=== PATIENT | male | born 1990 | race Caucasian/White ===

== ENCOUNTER 2016-12-12 08:46 | Emergency (ER) | payer SELFPAY ==
[~2016-12-12] VITALS: Ht 180.3 cm; Wt 73.5 kg
[2016-12-12 09:42] LABS: Basophils # (auto) 0.1 uL; Basophils % (auto) 0.6 % (0.0-2.0); CONDITION Y; Eosinophils # (auto) 0 uL; Eosinophils % (auto) 0.2 % (0.0-7.0); Hematocrit 49.2 % (41.0-53.0); Lymphocytes # (auto) 2.4 uL; Lymphocytes % (auto) 30.6 % (10.0-50.0); Mean Corpuscular Hgb Conc. 34.5 g/dL (32.0-36.0); Mean Corpuscular Volume 87.1 fL (80.0-100.0); Mean Platelet Volume 7.9 fL (7.4-10.4); Monocytes # (auto) 0.5 uL; Neutrophils # (auto) 4.8 uL; Neutrophils % (auto) 61.6 % (37.0-80.0); Platelet Count (auto) 276 10^3/uL (140-450); Red Cell Distribution Width 13.1 % (11.6-16.0); White Blood Cell 7.8 10^3/uL (4.4-10.8)
[2016-12-12 10:03] LABS: Albumin 4.1 g/dL (3.4-5.0); Bilirubin, Total 0.7 mg/dL (0.2-1.0); Calcium 8.7 mg/dL (8.5-10.1); Potassium 3.8 mmol/L (3.5-5.1); Total Protein 7.4 g/dL (6.4-8.2)
[2016-12-12] MEDS ORDERED: SODIUM CHLORIDE 0.9% 1,000 ML IV ONE (10:24)
[2016-12-12] MEDS ORDERED: LORazepam 2MG/ML-1ML VIAL IV ONE (10:30)
[2016-12-12 17:25] VITALS: BP 90/43
== END 2016-12-12 18:21 | disposition home or self-care (01) ==
LOC: ER 08:46
DX: G40.909 Epilepsy, unspecified, not intractable, without status epilepticus (principal); Z91.14 Patient's other noncompliance with medication regimen; F17.210 Nicotine dependence, cigarettes, uncomplicated; F12.10 Cannabis abuse, uncomplicated
CPT/HCPCS: 36415; 80053; 82962; 83735; 85025; 96361; 96374; 99284; J2060; J7030

== ENCOUNTER 2019-05-14 02:40 | Emergency (ER) | payer MEDICAID ==
[~2019-05-14] VITALS: Ht 180.3 cm; Wt 86.2 kg
[2019-05-14] MEDS ORDERED: LORazepam 2MG/ML-1ML VIAL ONE (02:49)
[2019-05-14] MEDS ORDERED: LORazepam 2MG/ML-1ML VIAL IV ONE (03:00)
[2019-05-14] MEDS ORDERED: LORazepam 2MG/ML-1ML VIAL IV PRN (03:00)
[2019-05-14 03:37] LABS: Urine Bacteria FEW /hpf (None Seen); Urine Blood 1+ /uL (Negative); Urine Hyaline Cast FEW /lpf (0 - 2); Urine Specific Gravity 1.006 (1.001-1.035); Urine Sperm PRESENT /hpf (None Seen); Urine WBC 1 /hpf (0 - 3)
[2019-05-14 03:43] LABS: Amphetamine Screen, Urine NEGATIVE (NEGATIVE); Barbiturate Scree,Urine NEGATIVE (NEGATIVE); Benzodiazephine Screen, Urine NEGATIVE (NEGATIVE); Cannabinoid Screen, Urine NEGATIVE (NEGATIVE); Cocaine Screen, Urine POSITIVE (NEGATIVE); Phencyclidine Screen, Urine NEGATIVE (NEGATIVE)
[2019-05-14 03:51] LABS: Opiate Scree,Urine NEGATIVE (NEGATIVE)
[2019-05-14 04:15] LABS: Albumin 3.5 g/dL (3.4-5.0); BUN/Creatinine Ratio 11.7; Calcium 7.9 mg/dL (8.5-10.1); Potassium 3.8 mmol/L (3.5-5.1)
[2019-05-14 04:16] LABS: Basophils # (auto) 0.1 uL; Basophils % (auto) 0.7 % (0.0-2.0); Eosinophils # (auto) 0.2 uL; Eosinophils % (auto) 1.1 % (0.0-7.0); Hematocrit 50.4 % (41.0-53.0); Hemoglobin 17.8 g/dL (13.5-17.5); Lymphocytes # (auto) 6.6 uL; Lymphocytes % (auto) 33.2 % (10.0-50.0); Mean Corpuscular Hemoglobin 32.1 pg (28.0-32.0); Mean Corpuscular Hgb Conc. 35.2 g/dL (32.0-36.0); Mean Corpuscular Volume 91.1 fL (80.0-100.0); Monocytes # (auto) 1.1 uL; Monocytes % (auto) 5.5 % (0.0-12.0); Neutrophils # (auto) 11.9 uL; Neutrophils % (auto) 59.5 % (37.0-80.0); Nucleated Red Blood Cells % 0.1 %; Platelet Count (auto) 348 10^3/uL (140-450); Red Blood Cells 5.53 10^6/uL (4.5-5.90); Red Cell Distribution Width 12.7 % (11.8-14.3); White Blood Cell 19.9 10^3/uL (4.4-10.8)
[2019-05-14 04:17] LABS: Bilirubin, Total 0.4 mg/dL (0.2-1.0); Salicylate 3.2 mg/dL (2.8-20.0); Total Protein 7.4 g/dL (6.4-8.2)
[2019-05-14 04:20] LABS: Acetaminophen < 2.0 ug/mL (10-30)
[2019-05-14] MEDS ORDERED: LEVETIRACETAM INJ 1,000 MG in D5W 5% 100 ML IV ONE (04:30)
[2019-05-14 04:43] LABS: Carbamazepine (Tegretol) < 0.5 ug/mL (4-12); Valproic Acid (Depakene) < 3.0 ug/mL (50-100)
[2019-05-14] MEDS ORDERED: LEVETIRACETAM 500 MG/5ML INJ IV ONE (05:37)
[2019-05-14 06:00] VITALS: BP 116/73
[2019-05-14] MEDS ORDERED: THIAMINE INJ 100 MG in SODIUM CHLORIDE 0.9% 1,000 ML IV ONE (06:00)
[2019-05-14] MEDS ORDERED: THIAMINE 100mg/ml INJ (200mg/2ml VIAL) ONE (06:31)
== END 2019-05-14 07:48 | disposition home or self-care (01) ==
LOC: EDBD 02:40 → ER 02:43
DX: G40.409 Other generalized epilepsy and epileptic syndromes, not intractable, without status epilepticus (principal); F19.10 Other psychoactive substance abuse, uncomplicated; Z91.14 Patient's other noncompliance with medication regimen
CPT/HCPCS: 36415; 36600; 70450; 80053; 80156; 80164; 80307; 80320; 80329; 81001; 82542; 82805; 85025; 93005; 96365; 96368; 96375; 99284; J1953; J2060; J3411; J7030; J7060